=== PATIENT | male | born 1935 | race Caucasian/White ===

== ENCOUNTER → 2019-12-18 09:47 | Outpatient (BNVA) | payer SELFPAY | PROVIDERS: PCP Internal Medicine; Referring Provider Internal Medicine; Visit Provider Urology | DX: R39.15 Urgency of urination (principal); N40.1 Benign prostatic hyperplasia with lower urinary tract symptoms; N13.8 Other obstructive and reflux uropathy | CPT/HCPCS: 99214 ==

== ENCOUNTER → 2020-01-15 13:26 | Outpatient (BNVA) | payer SELFPAY | PROVIDERS: PCP Internal Medicine; Visit Provider Urology | DX: Z76.89 Persons encountering health services in other specified circumstances (principal) ==

== ENCOUNTER → 2020-02-04 09:26 | Outpatient (REF) | payer MEDICARE, SELFPAY ==
--- NOTE | 2020-02-04 09:30 | CA_ITS ---
Transthoracic Echocardiogram Patient (Last, First, Middle): Wayne Montilla E Gender: Male Date of : 1935 Age: 84 Procedure Date: 02/04/2020 Procedure Type: Transthoracic Echocardiogram Location: OP Height: 175.26 cm Weight: 79.38 kg BSA: 1.95 m2 Heart Rate: bpm BP: 130 / 78 mmHg Youth Specialist: JOCE Referring MD: Ivan Valente MD Symptoms: I25.10 ASHDW/0 ANGINA PECTORIS Study Quality: Fair ECG Rhythm: Sinus Conclusions: - The left ventricular systolic function is normal. The visually estimated ejection fraction is between 60-65%. - E/E prime ratio is >15, consistent with elevated filling pressures. - No obvious valvular pathology seen on this study. Findings Left Ventricle Normal left ventricular cavity size. There is normal left ventricular wall thickness. The left ventricular systolic function is normal. The visually estimated ejection fraction is between 60-65%. There is no evidence of regional wall motion abnormalities. E/E prime ratio is >15, consistent with elevated filling pressures. Evidence suggests grade I (mild) diastolic dysfunction. Right Ventricle Normal right ventricular cavity size and systolic function. Atria The left atrium is normal in size. The right atrium is normal in size. Aortic Valve There is a normal trileaflet aortic valve. There is mild calcification of the aortic valve. There is no aortic valve stenosis. There is no aortic valve regurgitation. Mitral Valve The mitral valve appears normal. There is trace mitral valve regurgitation. There is no mitral valve stenosis. Pulmonic Valve The pulmonic valve was not well visualized. Tricuspid Valve Normal tricuspid valve structure. There is trace tricuspid valve regurgitation. The pulmonary artery systolic pressure is normal. Great Vessels The aortic annulus, sinuses of valsalva, and asc aorta are normal in size. Venous The inferior vena cava is normal in size and collapses greater than 50% with inspiration. Pericardium/Pleural There is no evidence of pericardial effusion. Prior Study Comparison Changes noted compared to prior study dated: 10/11/2018. Filling pressures appear higher. Recommendations, Care & Conclusions No obvious valvular pathology seen on this study. Measurements 2D Linear Measurements IVSd: 0.85 0.6-0.9/0.6-1.0 cm LVIDd: 3.93 3.9-5.3/4.2-5.9 cm LVIDd Index: 2.02 2.4-3.2/2.2-3.1 cm/m2 LVIDs: 2.54 2.0-3.6 cm LVPWd: 0.86 0.7-1.1 cm Ao Root: 3.60 2.1-3.5 cm LA Diam: 2.80 2.7-3.8/3.0-4.0 cm LAIDs Index: 1.44 1.5-2.3 cm/m2 LV Mass: 123.95 67-162/88-224 g LV Mass Index: 63.57 43-95/49-115 g/m2 LVOT Diam: 2.10 3.0+(-)1.3 cm 2D Systolic Function EF 4C: 53.00 >55% EF 2C: 61.10 >55% EF BiP: 54.10 >55% Mitral Valve MV Pk E: 1.02 MV PK A: 0.89 MV Decel Time: 369.00 E/A: 1.10 E'Lateral: 5.51 E'Medial: 6.48 E/E' Med: 15.70 E/E' Lat: 18.50 PHT: 108.00 MVA PHT: 2.04 Decel [place]: 2.77 Aortic Valve AoV Pk Gregorio: 1.16 AoV Mn Gregorio: 0.72 AoV VTI: 0.27 AoV Pk Grad: 5.00 Aov Mn Grad: 2.00 NAOMI Cont.VTI: 3.54 LVOT LVOT Pk Gregorio: 1.11 LVOT Mn Gregorio: 0.71 LVOT VTI: 0.28 LVOT Pk Grad: 5.00 LVOT Mn Grad: 2.00 LVOT Diam: 2.10 LVOT Area: 3.46 Diastolic Function MV Pk E: 1.02 MV Pk A: 0.89 E/A: 1.10 E'Medial: 6.48 E/E' Med: 15.70 E' Laterial: 5.51 E/E' Lat: 18.50 Tricuspid Valve TR Pk Gregorio: 2.58 TR Pk Grad: 27.00 RA Press: 3.00 RVSP: 30.00 Great Vessels Aorta Ao Root-2D: 3.60 2.0-3.7 cm Ao Asc: 3.50 2.1-3.4 cm Ao Arch: 2.70 Updated in Other Vendor System with Status of Final Jermaine Pacheco MD electronically signed on 02/05/2020 8:31:12 AM with status of Final
== END ==
LOC: HO.CARD 09:26
PROVIDERS: PCP Internal Medicine; Visit Provider Internal Medicine Cardiovascular Disease
DX: I25.10 Atherosclerotic heart disease of native coronary artery without angina pectoris (principal)
CPT/HCPCS: 93306

== ENCOUNTER → 2020-02-07 08:59 | Outpatient (BNVA) | payer MEDICARE, SELFPAY | PROVIDERS: PCP Internal Medicine; Visit Provider Internal Medicine Cardiovascular Disease | DX: I25.10 Atherosclerotic heart disease of native coronary artery without angina pectoris (principal); R07.9 Chest pain, unspecified; R06.02 Shortness of breath; R00.1 Bradycardia, unspecified | CPT/HCPCS: 93005; 99212 ==

== ENCOUNTER → 2020-02-12 11:38 | Outpatient (BNVA) | payer MEDICARE, SELFPAY | PROVIDERS: PCP Internal Medicine; Visit Provider Urology | DX: N40.1 Benign prostatic hyperplasia with lower urinary tract symptoms (principal); N13.8 Other obstructive and reflux uropathy; R39.15 Urgency of urination | CPT/HCPCS: Q3014 ==

== ENCOUNTER → 2020-03-11 09:45 | Outpatient (BNVA) | payer MEDICARE, SELFPAY | PROVIDERS: PCP Internal Medicine; Visit Provider Internal Medicine Cardiovascular Disease | DX: I25.10 Atherosclerotic heart disease of native coronary artery without angina pectoris (principal); R06.02 Shortness of breath | CPT/HCPCS: Q3014 ==

== ENCOUNTER → 2020-09-01 12:51 | Outpatient (BNVA) | payer MEDICARE, SELFPAY | PROVIDERS: PCP Internal Medicine; Referring Provider Internal Medicine; Visit Provider Internal Medicine Cardiovascular Disease | DX: I25.10 Atherosclerotic heart disease of native coronary artery without angina pectoris (principal) | CPT/HCPCS: 93005; 99212 ==

== ENCOUNTER 2021-01-28 09:33 | Outpatient (REF) | payer MEDICARE, SELFPAY ==
[2021-01-28 17:13] LABS: Urine Cytology See Pathology rpt
== END 2021-01-28 09:34 | disposition home or self-care (01) ==
LOC: HO.LAB 09:33
PROVIDERS: PCP Internal Medicine; Visit Provider Urology
DX: R31.29 Other microscopic hematuria (principal); R82.81 Pyuria; N40.1 Benign prostatic hyperplasia with lower urinary tract symptoms; N13.8 Other obstructive and reflux uropathy
CPT/HCPCS: 52000; 88112; 99212

== ENCOUNTER → 2021-09-10 08:52 | Outpatient (BNVA) | payer MEDICARE, SELFPAY | PROVIDERS: PCP Internal Medicine; Referring Provider Internal Medicine; Visit Provider Internal Medicine Cardiovascular Disease | DX: R00.1 Bradycardia, unspecified (principal); I25.10 Atherosclerotic heart disease of native coronary artery without angina pectoris | CPT/HCPCS: 93005; 99212 ==

== ENCOUNTER → 2021-09-17 09:11 | Outpatient (REF) | payer MEDICARE, SELFPAY ==
--- NOTE | 2021-09-17 09:16 | CA_ITS ---
Acquisition Time: 2021-09-17 09:29:52 Total Exercise Time: 00:06:00 Test Indications: Fatigue Medications: METOPROLOL Protocol: LOGAN Max HR: 120 BPM 88% of Pred: 136 BPM Max BP: 172/072 mmHG Max Work Load: 7.0 METS Exercise stress test with exercise 6 min of Logan protocol, achieving 88% MPHR, without anginal symptoms, with isolated PAC, with normotensive and normal chronotropic response to exercise, without EKG changes meeting criteria for ischemia with exercise, in recovery there is downsloping ST segements inferior and lateral leads with gradual improvement back to baseline. Test reviewed with Dr Pacheco. Referred By: Ivan Valente Overread By: KRIS SARGENT
== END ==
LOC: HO.CARD 09:11
PROVIDERS: PCP Internal Medicine; Visit Provider Internal Medicine Cardiovascular Disease
DX: R00.1 Bradycardia, unspecified (principal)
CPT/HCPCS: 93017

== ENCOUNTER 2022-01-28 10:07 | Outpatient (REF) | payer MEDICARE, SELFPAY ==
--- NOTE | ~2022-01-28 | XR_ITS ---
EXAMINATION: XR SHOULDER, LEFT XR SHOULDER, RIGHT CLINICAL INFORMATION: Shoulder pain and stiffness COMPARISON: 08/14/2017 TECHNIQUE: 3 views of each shoulder FINDINGS: Left shoulder: No fracture or dislocation. The glenohumeral joint is well aligned. Subchondral sclerosis along the joint. Mild hypertrophic degenerative change of the acromioclavicular joint. The visualized lung is clear. The visualized ribs are intact. Right shoulder: No fracture or dislocation. The glenohumeral joint is well aligned. Mild sclerosis along the joint with small osteophytes. Mild hypertrophic degenerative change of the acromioclavicular joint. Subacromial spurring noted. The visualized lung is clear. The visualized ribs are intact. XR/XR shoulder LT min 2V IMPRESSION: Mild degenerative changes of both shoulders. Subacromial spurring on the right.
--- NOTE | ~2022-01-28 | XR_ITS ---
EXAMINATION: XR KNEE AP STANDING CLINICAL INFORMATION: Bilateral knee pain and stiffness COMPARISON: None TECHNIQUE: AP bilateral standing view of the knees was obtained. Lateral view of both knees weightbearing. FINDINGS: Right knee: No fracture or subluxation. Mild medial and patellofemoral compartmental joint space narrowing. Small marginal osteophytes at the patellofemoral compartment. Prominent patellar enthesophytes. No joint effusion. The soft tissues appear unremarkable. Left knee: No fracture or subluxation. Mild narrowing of the medial compartment. Small marginal osteophytes of the patellofemoral compartment. Prominent patellar enthesophytes. Small joint effusion. XR/XR knee standing BI IMPRESSION: Mild degenerative changes of both knees. Small left knee joint effusion.
--- NOTE | ~2022-01-28 | XR_ITS ---
EXAMINATION: XR SHOULDER, LEFT XR SHOULDER, RIGHT CLINICAL INFORMATION: Shoulder pain and stiffness COMPARISON: 08/14/2017 TECHNIQUE: 3 views of each shoulder FINDINGS: Left shoulder: No fracture or dislocation. The glenohumeral joint is well aligned. Subchondral sclerosis along the joint. Mild hypertrophic degenerative change of the acromioclavicular joint. The visualized lung is clear. The visualized ribs are intact. Right shoulder: No fracture or dislocation. The glenohumeral joint is well aligned. Mild sclerosis along the joint with small osteophytes. Mild hypertrophic degenerative change of the acromioclavicular joint. Subacromial spurring noted. The visualized lung is clear. The visualized ribs are intact. XR/XR shoulder RT min 2V IMPRESSION: Mild degenerative changes of both shoulders. Subacromial spurring on the right.
== END 2022-01-28 10:08 | disposition home or self-care (01) ==
LOC: HO.HMGCX 10:07
PROVIDERS: PCP Internal Medicine; Visit Provider Internal Medicine
DX: M25.551 Pain in right hip (principal); M25.552 Pain in left hip; M25.561 Pain in right knee; M25.562 Pain in left knee
CPT/HCPCS: 73030; 73565

== ENCOUNTER 2022-02-03 14:15 | Outpatient (REF) | payer MEDICARE, SELFPAY ==
--- NOTE | ~2022-02-03 | XR_ITS ---
EXAMINATION: XR CHEST CLINICAL INFORMATION: Cough. COMPARISON: None TECHNIQUE: 2 views of the chest were obtained. FINDINGS: The lungs are well-expanded and clear acute pneumonic process. The heart size and pulmonary vascularity is normal. There is moderate spondylosis throughout dorsal spine. No aggressive lytic or sclerotic process seen. XR/XR chest 2V IMPRESSION: Unremarkable chest exam
== END 2022-02-03 14:16 | disposition home or self-care (01) ==
LOC: HO.HMGCX 14:15
PROVIDERS: PCP Internal Medicine; Visit Provider Internal Medicine
DX: R05.9 Cough, unspecified (principal)
CPT/HCPCS: 71046

== ENCOUNTER 2022-09-23 14:47 | Outpatient (AMB) | payer MEDICARE, SELFPAY ==
[2022-09-23 14:49] VITALS: BP 130/80; PULSE 58; BMI 28.2
--- NOTE | 2022-09-23 14:49 | MHC.OFFVIS ---
Intake Vital Signs 09/23/22 14:49 Height 5 ft 8 in Weight 185 lb 3.013 oz BMI 28.2 BP 130/80 Blood Pressure Location Lt brachial Position Sitting Pulse 58 Intake Visit Reasons: 1 year follow up w/ EKG Intake Note: 1 year follow-up with ekg had some chest pain yesteday Regulatory Assistant Required: No Allergies No Known Allergies [No Known Allergies*] Allergy (Verified 01/28/21 09:39) Medication List - Last Reconciled 09/23/22 by Ivan Valente MD aspirin 81 mg PO DAILY atorvastatin 80 mg PO DAILY 90 days cholecalciferol (vitamin D3) 125 mcg PO DAILY ketoconazole 2% topical 3XW losartan 50 mg PO DAILY mecobalamin (vitamin B12) 1,000 mcg PO DAILY metoprolol succinate ER 25 mg PO DAILY mirabegron ER (Myrbetriq) 25 mg PO DAILY 30 days [id number]-bdxegk [id number] mcg (Men 50 Plus Multivitamin) 1 tab PO DAILY primidone 250 mg PO TID tamsulosin 0.4 mg PO BEDTIME terazosin 5 mg PO BEDTIME 90 days HPI HPI Comments History of Present Illness Details Wayne comes for follow-up after a long gap. He said yesterday under stressful situation precordial chest pressure similar to his anginal symptoms. He took extra half aspirin symptoms subsided. He has not had any significant exertional chest discomfort. Taking all his medications. Denies any heart failure symptoms. He said he has been undergoing a lot of stress recently given advance health issues for his significant other [facility] Medical History CAD (coronary artery disease) HTN (hypertension) Hyperlipidemia Surgical History History of prostate surgery Hx of cardiac cath (~09/2018) Hx of colonoscopy Hx of inguinal hernia surgery Family History Father Lung cancer Mother No problems noted. Review of Systems Const Denies chills, Denies fatigue, Denies fever(s), Denies frequent falls, Denies weakness, Denies weight gain and Denies weight loss ENT Denies dizziness Card Denies chest pain, Denies leg edema, Denies lightheadedness, Denies palpitations, Denies dyspnea, Denies dyspnea on exertion, Denies orthopnea and Denies other (loss of consciousness) Resp Denies cough, Denies dyspnea and Denies dyspnea on exertion GI Denies hematochezia and Denies change in stool character Musc Denies abnormal gait, Denies muscle weakness, Denies numbness, Denies radiating pain into limb and Denies tingling Neuro Denies abnormal gait, Denies dizziness, Denies frequent falls, Denies numbness, Denies tingling and Denies weakness Endo Denies fatigue and Denies palpitations Physical Exam Vital Signs: Last Vital Signs Pulse 58 09/23/22 14:49 BP 130/80 09/23/22 14:49 BMI result Body Mass Index 28.2 Const General: cooperative, comfortable, no acute distress, alert, awake and well groomed Nutritional Appearance: overweight Orientation/consciousness: patient oriented x3 Limitations: no limitations Neck Neck: Yes trachea midline, Yes supple and Yes no JVD Carotids: no bruits Resp Effort & Inspection: normal respiratory effort Auscultation: clear to auscultation bilaterally Cardio Jugular venous distension: no JVD Palpation: normal PMI Rate: regular rate Rhythm: regular rhythm Heart sounds: S1 normal heart sound present, S2 normal heart sound present, no click, no gallops, no murmurs and no rubs GI Auscultation: normal bowel sounds Skin General skin exam: no rashes or lesions noted Neuro General: patient oriented x3 and no focal motor deficits Extrem General: Yes no clubbing, cyanosis or edema Office Procedures EKG Details: EKG shows sinus bradycardia without any significant abnormality [id number], Complete Assessment & Plan Assessment & Plan (1) CAD (coronary artery disease): Code(s): I25.10 - Atherosclerotic heart disease of [place] coronary artery without angina pectoris Plan: Recurrent stress-induced anginal sounding chest discomfort recently in this elderly gentleman with prior OM intervention. Advised to undergo myocardial perfusion imaging to further assess for progressive CAD myocardial ischemia. Advised to seek emergency care for under relieving chest discomfort. He understands and agrees. Continue current medical therapy. Will see him in the clinic in the near future otherwise follow-up in 1 year's time. Importance of compliance with follow-up was discussed. His blood pressure is currently well optimized advised to continue current therapy. Continue high-intensity statin therapy. Target goal LDL less than 70 mg/dL. Continue low-dose aspirin therapy for life. Will follow up in the clinic 1 year's time, sooner p.r.n.. Thank you for allowing me to partake in his care Coding Level of Care Code Est Pt Level 4 (25229) Diagnoses CAD (coronary artery disease) I25.10 CPT Codes EKG - CPT: 58341-[id number], Complete ([id number])
== END 2022-09-23 15:29 | disposition home or self-care (01) ==
LOC: HO.HCS 14:47
PROVIDERS: PCP Internal Medicine; Referring Provider Internal Medicine; Visit Provider Internal Medicine Cardiovascular Disease
DX: I25.10 Atherosclerotic heart disease of native coronary artery without angina pectoris (principal)
CPT/HCPCS: 93010; 99214

== ENCOUNTER → 2022-09-23 14:47 | Outpatient (BNVA) | payer MEDICARE, SELFPAY | PROVIDERS: PCP Internal Medicine; Referring Provider Internal Medicine; Visit Provider Internal Medicine Cardiovascular Disease | DX: I25.10 Atherosclerotic heart disease of native coronary artery without angina pectoris (principal) | CPT/HCPCS: 93005; 99212 ==

== ENCOUNTER → 2022-11-19 08:56 | Outpatient (REF) | payer MEDICARE, SELFPAY ==
--- NOTE | ~2022-11-19 | NM_ITS ---
Myocardial perfusion study Indication: Chest pain to evaluate for myocardial ischemia Technique: The patient was brought in for a Lexiscan perfusion study on 11/19/2022. Patient performed low-level exercise and was injected 0.4 mg of Lexiscan intravenously. Within a minute of injection, 30 mCi of sestamibi was given intravenously. Images were obtained using the SPECT gamma camera interlaced with the gating device. Images were obtained in supine position. Resting perfusion study was performed on 11/22/2022. Patient was administered 30 mCi of sestamibi intravenously at rest. Images were then obtained in supine position. Images obtained with and without CT attenuation. Total DLP 135 mGy-cm. Images were processed with the software and compared side to side in short axis, horizontal long axis and vertical long axis views. Findings: The stress perfusion study showed non attenuated images show overall normal uptake of radiotracer in all segments of LV myocardium. Remainder of the LV myocardium is normally perfused. Attenuation corrected images show minimally reduced uptake in the apex of the LV myocardium. The gated study shows normal LV systolic function with calculated LVEF of 71%. LV cavity is normal in size. The gated study shows normal systolic wall thickening and contraction of segments. Resting study shows no change in perfusion pattern compared to stress perfusion study. Gating at rest reveals normal systolic wall motion with ejection fraction at 67%. The findings are consistent with normal myocardial perfusion. NM/NM ian perf SPECT rest & str Impression: 1. Myocardial perfusion imaging study shows normal myocardial perfusion 2. Gated LVEF is 71% 3. Transient ischemic dilatation not present EKG is nondiagnostic for ischemia
--- NOTE | 2022-11-19 08:59 | CA_ITS ---
Acquisition Time: 2022-11-19 09:28:40 Total Exercise Time: 00:02:00 Test Indications: CP Medications: ASA ATORVASTATIN LOSARTAN METOPROLOL MYRBETRIQ PRIMIDONE TAMSULOSIN Protocol: LEXISCAN Max HR: 087 BPM 64% of Pred: 135 BPM Max BP: 144/084 mmHG Max Work Load: 1.0 METS pharmacological stress test with Lexiscan injection while sitting and kicking his l;egs, without anginal symptoms, without arrhythmias, with normotensive response to exercise, with nondiagnoisitic EKGs. Nuclear images pending. Test reviewed with Dr. Valente. Referred By: Ivan Valente Overread By: Aleja Mack
== END ==
LOC: HO.CARD 08:56
PROVIDERS: PCP Internal Medicine; Visit Provider Internal Medicine Cardiovascular Disease
DX: R07.9 Chest pain, unspecified (principal)
CPT/HCPCS: 78452; 93017; A9500; J0280; J2785

== ENCOUNTER → 2022-11-19 08:59 | Outpatient (BNV) | payer MEDICARE, SELFPAY | PROVIDERS: PCP Internal Medicine; Visit Provider Nurse Practitioner | DX: R07.9 Chest pain, unspecified (principal) | CPT/HCPCS: 78452; 93016; 93018 ==

== ENCOUNTER 2023-03-26 10:09 | Outpatient (AMB) | payer MEDICARE, SELFPAY ==
[2023-03-26 10:51] VITALS: BP 106/70; PULSE 83; TEMP 37.7; O2SAT 97
--- NOTE | 2023-03-26 10:51 | AM.OFFWIN_ITS ---
Intake Vital Signs 03/26/23 10:51 Height 5 ft 8 in BMI Reason not done Patient refused/unable BP 106/70 Blood Pressure Location Lt brachial Position Sitting Pulse 83 Pulse Source Pulse Oximeter Temp 99.8 F Temp Source Oral Pulse Oximetry (%) 97 Oxygen Delivery Method Room Air Intake Visit Reasons: EP congestion cough choking fatigue Intake Note: pt is here for c.o congestion, cough, fatigue Patient Tobacco Use Status: Never used Tobacco Allergies No Known Allergies [No Known Allergies*] Allergy (Verified 03/26/23 10:52) Do you need a note to return to daycare/school/sports/work: No HPI HPI Comments History of Present Illness Details This is an 87-year-old male who presented to the walk-in clinic today complaining of worsening sinus/nasal congestion, rhinorrhea with green/yellow nasal drainage, productive cough with green/yellow sputum, and postnasal drip x1 week. Patient states he had similar symptoms in February of 2023 he tested positive for COVID-19. He states that his symptoms actually resolved; however, his symptoms returned approximately 1 week ago and they have been worsening ever since. He denies any fevers or chills. He denies any chest pain or shortness of breath. Denies any abdominal pain or nausea/vomiting/diarrhea. [facility] Medical History CAD (coronary artery disease) HTN (hypertension) Hyperlipidemia Surgical History History of prostate surgery Hx of cardiac cath (~09/2018) Hx of colonoscopy Hx of inguinal hernia surgery Family History Father Lung cancer Mother No problems noted. Social History Patient Tobacco Use Status: Never used Tobacco Review of Systems Const All systems reviewed & are unremarkable except as noted in HPI and below Reports no additional complaints Eyes Reports no additional complaints ENT Reports no additional complaints Card Reports no additional complaints Resp Reports no additional complaints GI Reports no additional complaints Reports no additional complaints Musc Reports no additional complaints Skin/Breast Reports system reviewed and no additional complaints, except as documented Neuro Reports no additional complaints Psych Reports no additional complaints Endo Reports no additional complaints Ritchie/Lymph Reports no additional complaints Aller/Immun Reports no additional complaints Physical Exam Vital Signs: Last Vital Signs Temp 99.8 F 03/26/23 10:51 Pulse 83 03/26/23 10:51 BP 106/70 03/26/23 10:51 Pulse Ox 97 03/26/23 10:51 Oxygen Delivery Method Room Air 03/26/23 10:51 Const Other: Vital signs reviewed. Constitutional: Non-toxic appearing. No acute distress. Well-developed and well-nourished. HEENT: Normocephalic and atraumatic. Tympanic membranes without erythema, edema, or bulging bilaterally. External auditory canals without erythema or edema bilaterally. Moist mucous membranes. No pharyngeal erythema or exudates. + Post-nasal drip. Skin: Warm and dry. No rashes or lesions noted. Neck: Full and painless range of motion. No cervical lymphadenopathy. Cardio: Regular rate and rhythm. No murmurs, gallops, or rubs. No lower extremity edema. No JVD. Pulmonary: No respiratory distress. No accessory muscle usage. Clear to auscultation bilaterally without wheezing, crackles, or rhonchi. Gastrointestinal: Soft, nontender, and nondistended in all 4 quadrants. Musculoskeletal: Normal range of motion in joints throughout the body. No deformity or other signs of injury. Neuro: Alert and oriented x4. Cranial nerves 2-12 grossly intact. No focal deficits appreciated. Psych: Normal mood and affect. Assessment & Plan Assessment & Plan (1) Acute bacterial rhinosinusitis: Code(s): J01.90 - Acute sinusitis, unspecified; B96.89 - Other specified bacterial agents as the cause of diseases classified elsewhere Plan: This is an 87-year-old male who presented to the walk-in clinic complaining of recurrent/worsening sinus/nasal congestion, rhinorrhea with green/yellow nasal drainage, productive cough with green/yellow sputum, and postnasal drip x1 week a diagnosis of COVID-19 in February 2023. Patient's physical exam is benign with normal lung sounds bilaterally and his vital signs are stable with the exception of a low-grade temperature at 99.8? F. given recurrent and worsening symptoms in the setting of a recent viral infection, I am concerned for possible acute bacterial rhinosinusitis versus acute bacterial bronchitis given productive cough with sputum production. Patient was sent home on p.o. amoxicillin/clavulanate 875/125 mg twice daily x7 days. Recommended symptomatic management including rest, increased fluids, advil/tylenol for pain/fever, and over the counter throat lozenges/decongestants. Patient advised to follow up here or go to the emergency room for worsening/persistent symptoms. Patient verbalized understanding and is agreeable with the plan. Orders: Orders SARS-CoV2/FLU/RSV Today R09.89 - Other specified symptoms and signs involving the circulatory and respiratory systems Medications: New amoxicillin-pot clavulanate 875-125 mg 1 tab PO BID 14 tabs 0RF Coding Level of Care Code Est Pt Level 3 (91781) Diagnoses Acute bacterial rhinosinusitis J01.90; B96.89
== END 2023-03-26 11:34 | disposition home or self-care (01) ==
PROVIDERS: PCP Internal Medicine; Visit Provider Physician Assistant Medical
DX: J01.90 Acute sinusitis, unspecified (principal); B96.89 Other specified bacterial agents as the cause of diseases classified elsewhere
CPT/HCPCS: 99213

== ENCOUNTER 2023-03-26 13:46 | Outpatient (REF) | payer MEDICARE, SELFPAY ==
[2023-03-26 14:44] LABS: Influenza A PCR NEGATIVE (Negative); Influenza B PCR NEGATIVE (Negative); Resp Syncy Virus RNA Qual PCR NEGATIVE (Negative); SARS COV2 PCR INHOUSE POSITIVE (Negative)
== END 2023-03-26 13:47 | disposition home or self-care (01) ==
LOC: HO.LNP 13:46
PROVIDERS: Visit Provider Physician Assistant Medical
DX: R09.89 Other specified symptoms and signs involving the circulatory and respiratory systems (principal); Z11.52 Encounter for screening for COVID-19; Z20.828 Contact with and (suspected) exposure to other viral communicable diseases
CPT/HCPCS: 0241U

== ENCOUNTER 2023-10-14 10:22 | Outpatient (AMB) | payer MEDICARE, SELFPAY ==
[2023-10-14 10:45] VITALS: BP 110/62; PULSE 55; BMI 26.0
--- NOTE | 2023-10-14 10:45 | MHC.OFFVIS ---
Vital Signs 10/14/23 10:45 Height 5 ft 8 in Weight 171 lb 1.259 oz BMI 26.0 BP 110/62 Blood Pressure Location Lt brachial Position Sitting Pulse 55 Pulse Source Monitor Intake Visit Reasons: 1 year fu w/ ekg Intake Note: 1 yr f/up w/ekg- pt state that he is doing fine Curtain Framer Required: No Accompanied by: Self / Same As Patient Allergies No Known Allergies [No Known Allergies*] Allergy (Verified 03/26/23 10:52) Medication List - Last Reconciled 10/14/23 by Ivan Valente MD aspirin 81 mg PO DAILY atorvastatin 80 mg PO DAILY 90 days cholecalciferol (vitamin D3) 125 mcg PO DAILY ketoconazole 2% topical 3XW mecobalamin (vitamin B12) 1,000 mcg PO DAILY dv-ccb-poadc-H7-fqccqaf-clxxlx 718-03-980-300 mcg (Men 50 Plus Multivitamin) 1 tab PO DAILY primidone 250 mg PO TID tamsulosin 0.4 mg PO BEDTIME terazosin 5 mg PO BEDTIME 90 days HPI Comments Details: Wayne comes for follow-up. He has not had any significant symptoms angina. Comes for follow-up of his CAD. He said he maintains activity level without any symptoms of chest pain with exertion. No shortness of breath. He said he took himself off metoprolol and multiple other medication because he was having a brain fog. He said his symptoms brain fog improved. He currently is limited because of left-sided lumbar back pain. Takes all his medication but takes aspirin every other day or so. [facility] Medical History CAD (coronary artery disease) Hyperlipidemia HTN (hypertension) Surgical History Hx of cardiac cath (~09/2018) Hx of colonoscopy Hx of inguinal hernia surgery History of prostate surgery Family History Father Lung cancer Mother No problems noted. Social History Patient Tobacco Use Status: Never used Tobacco Review of Systems Const Denies chills, Denies fatigue, Denies fever(s), Denies frequent falls, Denies weakness, Denies weight gain and Denies weight loss ENT Denies dizziness Card Denies chest pain, Denies leg edema, Denies lightheadedness, Denies palpitations, Denies dyspnea and Denies dyspnea on exertion Resp Denies cough, Denies dyspnea and Denies dyspnea on exertion GI Denies hematochezia Musc Denies abnormal gait, Denies muscle weakness, Denies numbness, Denies radiating pain into limb and Denies tingling Neuro Denies abnormal gait, Denies dizziness, Denies frequent falls, Denies numbness, Denies tingling and Denies weakness Endo Denies fatigue and Denies palpitations Physical Exam Vital Signs: Last Vital Signs Pulse 55 10/14/23 10:45 BP 110/62 10/14/23 10:45 BMI result Body Mass Index 26.0 Const General: cooperative, comfortable, no acute distress, alert, awake and well groomed Nutritional Appearance: overweight Orientation/consciousness: patient oriented x3 Limitations: no limitations Neck Neck: Yes trachea midline, Yes supple and Yes no JVD Carotids: no bruits Resp Effort & Inspection: normal respiratory effort Auscultation: clear to auscultation bilaterally Cardio Jugular venous distension: no JVD Palpation: normal PMI Rate: regular rate Rhythm: regular rhythm Heart sounds: S1 normal heart sound present, S2 normal heart sound present, no click, no gallops, no murmurs and no rubs GI Auscultation: normal bowel sounds Skin General skin exam: no rashes or lesions noted Neuro General: patient oriented x3 and no focal motor deficits Extrem General: Yes no clubbing, cyanosis or edema Office Procedures EKG Details: EKG shows sinus bradycardia with first-degree AV block with sinus arrhythmia 92083-Rydymylvjcrejqlod, Complete Assessment & Plan Assessment & Plan (1) CAD (coronary artery disease): Code(s): I25.10 - Atherosclerotic heart disease of [place] coronary artery without angina pectoris Category: Medical Plan: CAD with remote stenting of circumflex artery without any recurrent symptoms suggestive of angina. Myocardial perfusion imaging last fall was within normal limits. No further workup is indicated. Importance of daily aspirin use was discussed with him as secondary prevention technique. He said he will think about it. Also continue high-intensity statin therapy with target goal LDL closer to 60 mg/dL. Blood pressure seems to be currently well optimized and would avoid using any antihypertensives at this point in time. Encouraged to maintain activity level as tolerated. (2) Sinus bradycardia: Code(s): R00.1 - Bradycardia, unspecified Category: Medical Plan: Sinus bradycardia in this elderly gentleman without any rate lowering medication. Would avoid rate lowering medications suggest metoprolol in future. No indication for pacing therapy as he is currently not having any symptoms. Most suggestive of sinoatrial swathi dysfunction. Will follow up in the clinic in 1 year's time, sooner p.r.n.. Thank you for allowing me to partake in his care Coding Level of Care Code Est Pt Level 4 (58030) Diagnoses CAD (coronary artery disease) I25.10 Sinus bradycardia R00.1 CPT Codes EKG - CPT: 90645-Tyeaofqkigsrrfqbt, Complete ([id number])
== END 2023-10-14 11:08 | disposition home or self-care (01) ==
PROVIDERS: PCP Internal Medicine; Visit Provider Internal Medicine Cardiovascular Disease
DX: I25.10 Atherosclerotic heart disease of native coronary artery without angina pectoris (principal); R00.1 Bradycardia, unspecified
CPT/HCPCS: 93010; 99214

== ENCOUNTER → 2023-10-14 10:22 | Outpatient (BNVA) | payer MEDICARE, SELFPAY | PROVIDERS: PCP Internal Medicine; Visit Provider Internal Medicine Cardiovascular Disease | DX: I25.10 Atherosclerotic heart disease of native coronary artery without angina pectoris (principal); R00.1 Bradycardia, unspecified | CPT/HCPCS: 93005; 99212 ==

== ENCOUNTER 2024-10-15 11:32 | Outpatient (AMB) | payer MEDICARE, SELFPAY ==
--- NOTE | 2024-10-15 11:51 | A.OFFVIS_ITS ---
Vital Signs 10/15/24 11:52 Height 5 ft 8 in Weight 154 lb 5.177 oz BMI 23.5 BP 132/82 Blood Pressure Location Lt brachial Position Sitting Pulse 59 Intake Visit Reasons: 1 yr followup w/ekg dx: cad Intake Note: 1 year follow-up with ekg feeling great Senior Director Insight Required: No Allergies No Known Allergies (No Known Allergies*) Allergy (Verified 03/26/23 10:52) Medication List - Last Reconciled 10/15/24 by Ivan Valente MD aspirin 81 mg PO DAILY atorvastatin 80 mg PO DAILY 90 days cholecalciferol (vitamin D3) 125 mcg PO DAILY ketoconazole 2% topical 3XW mecobalamin (vitamin B12) 1,000 mcg PO DAILY oy-yuz-biwam-D2-evijzbv-dobvjs 572-27-689-300 mcg (Men 50 Plus Multivitamin) 1 tab PO DAILY primidone 250 mg PO TID terazosin 5 mg PO BEDTIME 90 days HPI Comments Details: Wayne comes for follow-up he has been doing extremely well from cardiac perspective. He has been dancing and regularly participate in regular physical activity without any exertional chest pain. He feels well. Denies any lightheadedness, syncope. No heart failure symptoms. [facility] Medical History CAD (coronary artery disease) Hyperlipidemia HTN (hypertension) Surgical History Hx of cardiac cath (~09/2018) Hx of colonoscopy Hx of inguinal hernia surgery History of prostate surgery Family History Father Lung cancer Mother No problems noted. Social History Patient Tobacco Use Status: Never used Tobacco Review of Systems Const Denies chills, Denies fatigue, Denies fever(s), Denies frequent falls, Denies weakness, Denies weight gain and Denies weight loss ENT Denies dizziness Card Denies chest pain, Denies leg edema, Denies lightheadedness, Denies palpitations, Denies dyspnea, Denies dyspnea on exertion, Denies orthopnea and Denies other (loss of consciousness) Resp Denies cough, Denies dyspnea and Denies dyspnea on exertion GI Denies hematochezia and Denies change in stool character Musc Denies abnormal gait, Denies muscle weakness, Denies numbness, Denies radiating pain into limb and Denies tingling Neuro Denies abnormal gait, Denies dizziness, Denies frequent falls, Denies numbness, Denies tingling and Denies weakness Endo Denies fatigue and Denies palpitations Physical Exam Vital Signs: Last Vital Signs Pulse 59 10/15/24 11:52 BP 132/82 10/15/24 11:52 BMI result Body Mass Index 23.5 Const General: cooperative, comfortable, no acute distress, alert, awake and well groomed Nutritional Appearance: overweight Orientation/consciousness: patient oriented x3 Limitations: no limitations Neck Neck: Yes trachea midline, Yes supple and Yes no JVD Carotids: no bruits Resp Effort & Inspection: normal respiratory effort Auscultation: clear to auscultation bilaterally Cardio Jugular venous distension: no JVD Palpation: normal PMI Rate: regular rate Rhythm: regular rhythm Heart sounds: S1 normal heart sound present, S2 normal heart sound present, no click, no gallops, no murmurs and no rubs GI Auscultation: normal bowel sounds Skin General skin exam: no rashes or lesions noted Neuro General: patient oriented x3 and no focal motor deficits Extrem General: Yes no clubbing, cyanosis or edema Office Procedures EKG Details: EKG shows sinus bradycardia with normal EKG 64293-Ozhfonkrlzapxpryp, Complete Assessment & Plan Assessment & Plan (1) CAD (coronary artery disease): Code(s): I25.10 - Atherosclerotic heart disease of [place] coronary artery without angina pectoris Category: Medical Plan: Remote CAD with PCI to the circumflex artery without any significant symptoms of angina at current workload and good functional status. Continue aggressive medical therapy. Low-dose aspirin therapy is advised continue high-intensity statin therapy. Advised lipid panel in near future. Continue aggressive blood pressure control which is currently well optimized. Encouraged to maintain activity level and report any new symptoms. (2) HTN (hypertension): Code(s): I10 - Essential (primary) hypertension Category: Medical Plan: Hypertension which is currently well optimized. He is currently on only terazosin which is managing his blood pressure. Continue the same. Advised to monitor blood pressure at home maintain a log. Goal blood pressure less than 130/84. Low-salt diet was advised. (3) Sinus bradycardia: Code(s): R00.1 - Bradycardia, unspecified Category: Medical Plan: Prior sinus bradycardia but currently not on any rate lowering medication with acceptable heart rate. He has no symptoms related to it. Does not require any interventions. Avoid rate lowering medications in the future. Will follow up in the clinic in 1 year's time, sooner p.r.n.. Thank you for allowing me to partake in his care Coding Level of Care Code Est Pt Level 4 (70681) Complex EM visit Add On G2211 Diagnoses CAD (coronary artery disease) I25.10 HTN (hypertension) I10 Sinus bradycardia R00.1 CPT Codes EKG - CPT: 77463-Aazlzjugqfcgioknw, Complete ([id number])
[2024-10-15 11:52] VITALS: BP 132/82; PULSE 59; BMI 23.5
--- OUTSIDE RECORDS SUMMARY | 2024-10-15 13:04 | XMS_ITS | Patient Health Record ---
Author Organization [facility] [place] Address [address] [place] [address] Care Team Providers Care Kicking Machine Operator Name Role Phone Bonilla Cruz MD Primary Care Provider UnavailEros Landis Unavailable [phone] Allergies Allergen (clinical drug ingredient) Drug/Non Drug Allergy documented on EMR Reaction Allergy Type Onset Date Status Sinus Unknown Drug Allergy Active Reason For Referral No Information Medications Medication SIG (Take, Route, Frequency, Duration) Notes Start Date End Date Status Terazosin HCl 5 MG 1 capsule at bedtime Orally Once a day; Duration: 30 day(s) Active Ciclopirox Olamine 0.77 % 1 application Externally Twice a day; Duration: 30 days Not-Takin g Isosorbide Dinitrate 60 mg Not-Taking Marijuana medical Not-Taking Allergy Relief 10 MG 1 tablet Orally [...] Once a day; Duration: 30 day(s) Active Primidone 50 MG 1 tablet Orally Once a day; Duration: 30 day(s) Active Immunizations Vaccine Route Administration Date Status Comme nts COVID-19 Moderna Vaccine Unknown 11/18/2020 Administere d 1st 10/03/2020 Influenza Unknown 12/26/2020 Refused Social History Tobacco Use: Social History Observation [...] ast year? No Points 0 Interpretation Negative Problems Problem Type SNOMED Code ICD Code Onset Dates Problem Status W/U Status Risk Notes Problem Bilateral atherosclerosis of arteries of lower limbs (disorder) ([id number] ) Atherosclerosis of [place] artery of both lower extremities, with unspecified presence of clinical manifestation (I70.203) Active confirmed Vital Signs Blood pressure diastolic 63 mm Hg 11/25/2023 Height 5 ft 9 in in 11/25/2023 Blood pressure systolic 122 mm Hg 11/25/2023 Weight 170 lbs 11/25/2023 BMI 25.1 kg/m2 11/25/2023 Procedures Procedure Date Ordered Date Performed Result Body Sit e 76903-GQXKULF NAIL, 6 OR MORE 11/25/2023 N/A 66190-CMBQ SKIN LESIONS, OVER 4 11/25/2023 N/A Encounters Encounter Location Date Provider Diagnosis [facility] [address] [address] 11/25/2023 Eros Pederson Atherosclerosis of [place] artery of both lower extremities, with unspecified presence of clinical manifestation I70.203 ; Tinea unguium B35.1 ; Pain in right toe(s) M79.674 and Pain in left toe(s) M79.675 [facility] [address] [address] 03/02/2024 Erso Pederson Assessments Encounter Date Diagnosis (ICD Code) Assessment Notes Treatment Notes Treatment Clinical Notes Section Notes 11/25/2023 Tinea unguium (ICD-10 - B35.1) 11/25/2023 Atherosclerosis of [place] artery of both lower extremities, with unspecified presence of clinical manifestation (ICD-10 - I70.203) 11/25/2023 Pain in right toe(s) (ICD-10 - M79.674) 11/25/2023 Pain in left toe(s) (ICD-10 - M79.675) Plan Of Treatment Pending Test Test Name Order Date 60780-DGJSMCC NAIL, 6 OR MORE 10/10/2020 53462-VPJAIRN NAIL, 6 OR MORE 12/26/2020 09110-UTYIFZY NAIL, 6 OR MORE 05/15/2021 93859-KRJMYWH NAIL, 6 OR MORE 12/25/2021 12592-PVDXNRB NAIL, 6 OR MORE 03/12/2022 37422-OQVHIDE NAIL, 6 OR MORE 07/30/2022 91227-SFRVKHB NAIL, 6 OR MORE 10/08/2022 20871-UHWCAKW NAIL, 6 OR MORE 05/24/2023 53479-PLEBVTW NAIL, 6 OR MORE 09/13/2023 91280-VUPCLOB NAIL, 6 OR MORE 11/25/2023 61805-VVLSDPZ NAIL, 6 OR MORE 03/18/2023 88457-LKRGNWO NAIL, 6 OR MORE 12/21/2022 76976-XYORBIC NAIL, 6 OR MORE 05/21/2022 35360-OUZXQYF NAIL, 6 OR MORE 08/14/2021 32733-LTNE SKIN LESIONS, OVER 4 05/22/19 23 56886-DGHI SKIN LESIONS, OVER 4 12/22/19 23 40042-GIMT SKIN LESIONS, OVER 4 03/18/19 24 16393-XNBG SKIN LESIONS, OVER 4 11/25/19 24 24387-WOOT SKIN LESIONS, OVER 4 09/13/19 24 10323-UNVR SKIN LESIONS, OVER 4 05/24/19 24 02943-WXXO SKIN LESIONS, OVER 4 10/09/19 23 51412-ONPP SKIN LESIONS, OVER 4 07/31/19 23 91306-WELJ SKIN LESIONS, OVER 4 03/12/19 23 49777-EHOV SKIN LESIONS, 2 TO 4 12/26/19 22 Insurance Providers Payer Name Payer Address Payer Phone Subscriber Number Group Number Insured Name Patient Relationship to Insured Coverage Start Date Coverage End Date [facility] 67 Medicare Preferred [address] [place] [address] [id number] Wayne Montilla Self - patient is the insured Medical (General) History Medical History History ICD Code Angina Cataracts Gall bladder problems High blood pressure Warts Measles Chicken pox covid-19 dry eyes Surgical History 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
== END 2024-10-15 12:16 | disposition home or self-care (01) ==
LOC: HO.HCS 11:32
PROVIDERS: PCP Internal Medicine; Visit Provider Internal Medicine Cardiovascular Disease
DX: I25.10 Atherosclerotic heart disease of native coronary artery without angina pectoris (principal); I10 Essential (primary) hypertension; R00.1 Bradycardia, unspecified
CPT/HCPCS: 93010; 99214; G2211

== ENCOUNTER → 2024-10-15 11:32 | Outpatient (BNVA) | payer MEDICARE, SELFPAY | PROVIDERS: PCP Internal Medicine; Visit Provider Internal Medicine Cardiovascular Disease | DX: I25.10 Atherosclerotic heart disease of native coronary artery without angina pectoris (principal); I10 Essential (primary) hypertension; R00.1 Bradycardia, unspecified | CPT/HCPCS: 93005; 99212 ==

== ENCOUNTER 2024-10-19 14:24 | Outpatient (AMB) | payer MEDICARE, SELFPAY ==
--- OUTSIDE RECORDS SUMMARY | 2023-08-05 06:00 | XMS_ITS ---
Author Organization [facility] Address [address] [place] [address] Care Team Providers Care Permit Coordinator Name Role Phone Nancy GRANDA, Bonilla Primary Care Provider Unavailab Eros Barnhart Unavailable [phone] Encounters Encounter Location Date Provider Diagnosis [address] [address] 08/05/2023 rEos Pederson Plan Of Treatment No Information Progress Notes * Wayne LAM EDOB:1935 (89 yo M)Acc No.[id number]:08/05/2023 Progress Note Patient: Wayne BARON Provider: Judy Pederson DPM :1935 A ge:88 Y S ex:Male Date:08/05/2023 Address:[address] [place], [place] [id number] Pcp:Bonilla Cruz MD Subjective: * Chief Complaints: [...] Date: 08/05/2023 Generated for Printi ng/Faxing/eTransmitting on: 10/19/2024 02:27 PM EDT
--- OUTSIDE RECORDS SUMMARY | 2024-03-02 07:15 | XMS_ITS ---
Author Organization [facility] [place] Address [address] [place] [address] Care Team Providers Care Seed Yeast Operator Name Role Phone Bonilla Cruz MD Primary Care Provider Unavailab Eros Barnhart Unavailable [phone] Medications Medication SIG (Take, Route, Frequency, Duration) [...] Negative Encounters Encounter Location Date Provider Diagnosis [facility] [place] [address] [place] [address] 03/02/2024 Eros Pederson Plan Of Treatment No Information Progress Notes * Wayne LAM EDOB:1935 (89 yo M)Acc No.[id number]:03/02/2024 Progress Note Patient: Wayne BARON Provider: Judy Pederson DPM :1935 A ge:88 Y S ex:Male Date:03/02/2024 Address:[address] [place], [place] [id number] Pcp:Bonilla Cruz MD Subjective: * Chief Complaints: [...] 0 03/02/2024 Generated for Josi shell/Anay/Taty on: 0 10/19/2024 02:27 PM EDT
--- NOTE | 2024-10-19 14:26 | A.OFFPC_ITS ---
Vital Signs 10/19/24 14:43 Height 5 ft 6.54 in Weight 158 lb 8 oz BMI 25.2 BP 120/58 L Blood Pressure Location Rt femoral Position Sitting Respiration 16 Pulse 48 L Pulse Source Pulse Oximeter Temp 97.2 F Temp Source Temporal Artery Scan Pulse Oximetry (%) 99 Oxygen Delivery Method Room Air Intake [place] Re[place] [facility] [place]st Required: No Accompanied by: Self / Same As Patient Allergies No Known Allergies (No Known Allergies*) Allergy (Verified 10/19/24 16:10) Medication List - Last Reconciled 10/19/24 by Kimi Rudolph PA-C aspirin 81 mg PO DAILY atorvastatin 80 mg PO DAILY 90 days cholecalciferol (vitamin D3) 125 mcg PO DAILY mecobalamin (vitamin B12) 1,000 mcg PO DAILY [id number]-dfcmdx [phone] mcg (Men 50 Plus Multivitamin) 1 tab PO DAILY primidone 250 mg PO TID sildenafil (Viagra) 50 mg PO DAILY PRN terazosin 5 mg PO BEDTIME 90 days Tobacco use date assessed: 10/19/24 Fall risk assessment: 1 Fall in past year Last assessed Fall Risk: 10/19/24 Dental Screening Dental Screen Date: 10/19/24 Did you have a dental visit in the last 12 months?: Yes Did you have a dental problem in the last 6 months where you did not have access to dental care?: No Was dental information given to patient?: Patient has dentist [place] [facility] [place] Details The patient is an 89-year-old male presenting for the establishment of primary care and evaluation of gastrointestinal symptoms. The patient has a history of coronary artery disease, managed with aspirin and atorvastatin, and has undergone balloon angioplasty for a small coronary vessel. He reports alternating episodes of diarrhea and constipation, with recent use of enemas for relief. There is no history of black or bloody stools, but he has experienced unintentional weight loss, partially due to dietary changes. He has not had a colonoscopy in over a decade and reports right-sided abdominal discomfort. No recent imaging or comprehensive blood work has been performed this year. The patient reports erectile dysfunction and has been prescribed sildenafil, with plans to resume sexual activity. He experiences neuropathy likely due to chronic arthritis, which is managed with physical activity such as dancing. Dermatological concerns include irregular moles and scalp dermatitis, prompting a dermatology referral. Social History - Exercise: Engages in dancing and exerc ise classes, which have improved joint mobility and reduced arthritis symptoms. - Living situation: Lives independently without the need for assistance. - Nutrition: Follows a self-imposed diet , eating two meals a day, occasionally skipping dinner. [facility] Medical History (Updated 10/19/24 @ 16:16 by Kimi Rudolph PA-C) Neuropathy Diarrhea Constipation Multiple atypical skin moles Erectile dysfunction Right sided abdominal pain CAD (coronary artery disease) Hyperlipidemia HTN (hypertension) Surgical History Hx of cardiac cath (~09/2018) Hx of colonoscopy Hx of inguinal hernia surgery History of prostate surgery Family History Father Lung cancer Mother No problems noted. Social History Housing: Condominium Alcohol intake: current Alcohol intake frequency: holidays/special occasions only Patient Tobacco Use Status: Never used Tobacco service: No Current occupational status: retired Cognitive needs: No Hearing needs: No Vision needs: Yes (reading) Questionnaire PHQ-9 Over the last 2 weeks, how often have you been bothered by any of the following problems? 1. Little interest or pleasure in doing things: not at all 2. Feeling down, depressed, or hopeless: not at all 3. Trouble falling or staying asleep, or sleeping too much: not at all 4. Feeling tired or having little energy: not at all 5. Poor appetite or overeating: not at all 6. Feeling bad about yourself - or that you are a failure or have let yourself or your family down: not at all 7. Trouble concentrating on things, such as reading the newspaper or watching television: not at all 8. Moving or speaking so slowly that other people could have noticed. Or the opposite - being so fidgety or restless that you have been moving around a lot more than usual: not at all 9. Thoughts that you would be better off or of hurting yourself in some way: not at all Total score: 0 Depression Screening Interpretation: Negative Depression Screening Done: Yes 73739 - PHQ-9 Billing: Yes Source: Developed by Drs. Girish Mccarthy, Africa Restrepo, Dayne Gutierrez and colleagues, with an educational shen from [employer]. Thrive Questionnaire Date Thrive assessed: 10/19/24 I am a: Patient What is your living situation today?: I have a steady place to live Within the past 12 months, did the food you bought not last and you didn't have the money to get more?: Never true Within the past 12 months, did you worry whether your food would run out before you got money to buy more?: Never true Do you have trouble paying for medicines?: No Do you have trouble getting transportation to medical appointments?: No Do you have trouble paying your heating and electricity bill?: No Do you have trouble taking care of your child, family member or friend?: No Do you have trouble with day-to-day activities such as bathing, preparing meals, shopping, managing finances, etc.?: No Are you currently unemployed and looking for a job?: No Are you interested in more education?: No Please select the resources that you would like help with: None Currently or been in a relationship where the following occur: No concerns reported THRIVE Score: 0 AUDIT C Alcohol Use Questionnaire (AUDIT-C) 1. How often do you have a drink containing alcohol?: Monthly or less 2. How many drinks containing alcohol do you have on a typical day when you are drinking?: 1 or 2 3. How often do you have six or more drinks on one occasion?: Never Total Score: 1 Score Reviewed/Action Taken: No MANNY-7 AMB Questionnaire MANNY-7 Date MANNY - 7 assessed: 10/19/24 Feeling nervous, anxious, or on edge: 0 = Not at all Not being able to stop or control worryin = Not at all Worrying too much about different things: 0 = Not at all Trouble relaxin = Not at all Being so restless that it is hard to sit still: 0 = Not at all Becoming easily annoyed or irritable: 0 = Not at all Feeling afraid as if something awful might happen: 0 = Not at all Total MANNY-7 score (0-4 normal; 5-9 mild; 10-14 moderate; 15-21 severe): 0 Source: Developed by Drs. Girish Mccarthy, Africa Restrepo, Dayne Gutierrez and colleagues, with an educational shen from [employer]. MANNY-7 Assessment Billing MANNY-7 Assessment Tool: MANNY-7 Assessment 04446 Review of Systems Const Details: - Gastrointestinal: Reports alternating diarrhea and constipation, right-sided abdominal discomfort, denies black or bloody stools. - Cardiovascular: Denies chest pain or dyspnea. - Genitourinary: Reports erectile dysfunction, denies hematuria. - Neurological: Reports neuropathy, denies balance issues. All systems reviewed & are unremarkable except as noted in HPI and below Physical exam (Primary Care) Vital Signs: Last Vital Signs Temp 97.2 F 10/19/24 14:43 Pulse 48 L 10/19/24 14:43 Resp 16 10/19/24 14:43 BP 120/58 L 10/19/24 14:43 Pulse Ox 99 10/19/24 14:43 Oxygen Delivery Method Room Air 10/19/24 14:43 Care Plan Goal for BP management: <140/90 at Goal BMI result Body Mass Index 25.2 BMI Assessment/Plan discussion: High BMI High, discussed plan: lifestyle, weight reduction, dietary, physical activity, alcohol moderation and other Tobacco/Smoking Status: Tobacco use Status Tobacco use date assessed 10/19/24 10/19/24 14:31 Patient Tobacco Use Status Never used Tobacco 10/19/24 14:42 PHQ-9: PHQ-9 Score PHQ-9: Total score 0 10/19/24 15:26 Depression Screening Interpretation: Negative Thrive Assessment: Date of Thrive Assessment Date Thrive assessed 10/19/24 10/19/24 14:31 Currently or been in a relationship where the following occur: No concerns reported Const Other: Appearance: Alert. Oriented X3. No acute distress. Head: Normal external exam. Normocephalic. Atraumatic. Eyes: Pupils are equal, round, and reactive to light. Extraocular movements intact. Conjunctiva and sclera normal. Eyelids normal. Ears: External auditory canal normal. Tympanic membranes normal. A little bit of wax around the rim, but not blocking the tympanic membrane. Throat: Pharynx normal. Uvula midline. Moist mucous membranes. Neck: Normal inspection. Neck supple. Full range of motion. Cardiovascular: Normal heart rate and rhythm. Heart sound normal. A little murmur noted. Pulses normal throughout. Respiratory: No respiratory distress. Painless inspiration. Breath sounds normal. No wheezes/rales/rhonchi noted. No accessory muscle usage noted or decreased air movement noted. Abdomen: Soft and nontender. No distention noted. No organomegaly noted. Back: No costovertebral angle tenderness. Full range of motion noted. Skin: Skin warm and dry. Normal skin color. Normal skin turgor. No rashes/lesions/lacerations noted. Multiple moles on the back, none suspicious for cancer. Extremities: No lower extremity edema. Extremities exhibit normal range of motion. Extremities nontender. Neuro: Oriented X 3. No motor deficit. No sensory deficit. Reflexes normal. Coding Level of Care Code New Pt Level 4 (98817) Complex EM visit Add On G2211 Diagnoses CAD (coronary artery disease) I25.10 Constipation K59.00 Diarrhea R19.7 Erectile dysfunction N52.9 Neuropathy G62.9 Multiple atypical skin moles D22.9 Sinus bradycardia R00.1 Additional Codes PHQ-9 - 18593 - PHQ-9 Billing: Yes ([id number]) MANNY-7 Assessment Billing - MANNY-7 Assessment Tool: MANNY-7 Assessment 26304 ([id number]) Assessment & Plan Assessment & Plan (1) CAD (coronary artery disease): Code(s): I25.10 - Atherosclerotic heart disease of [place] coronary artery without angina pectoris Category: Medical Plan: The patient is on aspirin and atorvastatin for coronary artery disease, with a history of balloon angioplasty for a small coronary vessel. (2) Constipation: Code(s): K59.00 - Constipation, unspecified Category: Medical Plan: The patient reports constipation managed with enemas, and a colonoscopy is recommended due to the long interval since the last one. (3) Diarrhea: Code(s): R19.7 - Diarrhea, unspecified Category: Medical Plan: The patient experiences alternating diarrhea and constipation, with a plan for a colonoscopy and abdominal imaging to rule out any underlying issues. (4) Erectile dysfunction: Code(s): N52.9 - Male erectile dysfunction, unspecified Category: Medical Plan: Sildenafil was prescribed for erectile dysfunction, with instructions on dosage and use. (5) Neuropathy: Code(s): G62.9 - Polyneuropathy, unspecified Category: Medical Plan: Neuropathy is likely secondary to chronic arthritis, with physical activity recommended to improve symptoms. (6) Multiple atypical skin moles: Code(s): D22.9 - Melanocytic nevi, unspecified Category: Medical Plan: Referral to dermatology was made for irregular moles and scalp dermatitis, with no suspicious lesions noted for cancer. (7) Sinus bradycardia: Code(s): R00.1 - Bradycardia, unspecified Category: Medical Plan: A low heart rate with a murmur was noted, but no immediate cardiology referral was discussed. Plan Plan Patient was informed and verbally consented to the use of an ambient scribe for clinic note documentation during this visit. 1. Coronary Artery Disease The patient is on aspirin and atorvastatin for coronary artery disease, with a history of balloon angioplasty for a small coronary vessel. 2. Constipation The patient reports constipation managed with enemas, and a colonoscopy is recommended due to the long interval since the last one. 3. Diarrhea The patient experiences alternating diarrhea and constipation, with a plan for a colonoscopy and abdominal imaging to rule out any underlying issues. 4. Erectile Dysfunction Sildenafil was prescribed for erectile dysfunction, with instructions on dosage and use. 5. Neuropathy Neuropathy is likely secondary to chronic arthritis, with physical activity recommended to improve symptoms. 6. Low Heart Rate A low heart rate with a murmur was noted, but no immediate cardiology referral was discussed. 7. Dermatological Concerns Referral to dermatology was made for irregular moles and scalp dermatitis, with no suspicious lesions noted for cancer. I discussed with the patient the management of his coronary artery disease with aspirin and atorvastatin, and the need for a colonoscopy due to gastrointestinal symptoms and the long interval since his last screening. We also talked about the prescription of sildenafil for erectile dysfunction and the importance of physical activity for managing neuropathy and arthritis symptoms. A dermatology referral was made for skin concerns, and I explained the process for scheduling a colonoscopy and abdominal imaging. Orders: Orders Complete Blood Count Auto Diff Today Z00.00 - Encounter for general adult medical examination without abnormal findings Liver Panel Today Z00.00 - Encounter for general adult medical examination without abnormal findings Magnesium Today Z00.00 - Encounter for general adult medical examination without abnormal findings PSA,Total (Free>4and<10) Today Z00.00 - Encounter for general adult medical examination without abnormal findings TSH reflex Free T4 Today Z00.00 - Encounter for general adult medical examination without abnormal findings Comprehensive Met. Panel Today Z00.00 - Encounter for general adult medical examination without abnormal findings Hemoglobin A1c Today Z00.00 - Encounter for general adult medical examination without abnormal findings CT abdomen pelvis w IV con Today R10.9 - Unspecified abdominal pain Referrals Gastroenterology Referral Z12.11 - Encounter for screening for malignant neoplasm of colon Dermatology Referral D22.9 - Melanocytic nevi, unspecified Medications: New sildenafil (Viagra) administer 30 minutes to 4 hours before activity 50 mg PO DAILY PRN 20 tabs 3RF sexual activity N52.9 - Male erectile dysfunction, unspecified Refilled terazosin 5 mg PO BEDTIME 90 caps 3RF 90 days aspirin 81 mg PO DAILY 90 tabs 3RF Patient Instructions: - Continue taking aspirin and atorvastatin as prescribed. - Use sildenafil as directed for erectile dysfunction. - Engage in regular physical activity to help manage neuropathy and arthritis symptoms. - Schedule and attend a colonoscopy and abdominal imaging as advised. - Follow up with dermatology for skin evaluation. - Return for a follow-up appointment in six months or sooner if symptoms worsen.
--- OUTSIDE RECORDS SUMMARY | 2024-10-19 14:27 | XMS_ITS | Patient Health Record ---
[facility] Organization [facility] [place] Address [address] [place] [address] Care Team Providers Care Camera Operator Name Role Phone Bonilla Cruz MD Primary Care Provider UnavailEros Landis Unavailable [phone] Allergies Allergen (clinical drug ingredient) Drug/Non Drug [...] Vaccine Route Administration Date Status Comme nts Influenza Unknown 12/26/2020 Refused COVID-19 Moderna Vaccine Unknown 11/18/2020 Administere d 1st 10/03/2020 Social History Tobacco Use: Social History Observation [...] atherosclerosis of arteries of lower limbs (disorder) ([id number] ) Atherosclerosis of [place] artery of both lower extremities, with unspecified presence of clinical manifestation (I70.203) Active confirmed Vital Signs Blood pressure diastolic 63 mm Hg 11/25/2023 Height 5 ft 9 in in 11/25/2023 Blood pressure systolic 122 mm Hg 11/25/2023 Weight 170 lbs 11/25/2023 BMI 25.1 kg/m2 11/25/2023 Procedures Procedure Date Ordered Date Performed Result Body Sit e 64170-XXEJPFA NAIL, 6 OR MORE 11/25/2023 N/A 16863-XUGS SKIN LESIONS, OVER 4 11/25/2023 N/A Encounters Encounter Location Date Provider Diagnosis [facility] [address] [address] 11/25/2023 Eros Pederson Atherosclerosis of [place] artery of both lower extremities, with unspecified presence of clinical manifestation I70.203 ; Tinea unguium B35.1 ; Pain in right toe(s) M79.674 and Pain in left toe(s) M79.675 [facility] [address] [address] 03/02/2024 Eros Pederson Assessments Encounter Date Diagnosis (ICD Code) Assessment Notes Treatment Notes Treatment Clinical Notes Section Notes 11/25/2023 Tinea unguium (ICD-10 - B35.1) 11/25/2023 Atherosclerosis of [place] artery of both lower extremities, with unspecified presence of clinical manifestation (ICD-10 - I70.203) 11/25/2023 Pain in right toe(s) (ICD-10 - M79.674) 11/25/2023 Pain in left toe(s) (ICD-10 - M79.675) Plan Of Treatment Pending Test Test Name Order Date 56030-GPSZDNA NAIL, 6 OR MORE 10/10/2020 77179-CZDUYQN NAIL, 6 OR MORE 12/26/2020 21913-RUCAHMU NAIL, 6 OR MORE 05/15/2021 93325-YVDKUXZ NAIL, 6 OR MORE 08/14/2021 53432-SJGWDPE NAIL, 6 OR MORE 12/25/2021 76337-NTZXWBL NAIL, 6 OR MORE 03/12/2022 37733-XSIFSIV NAIL, 6 OR MORE 05/21/2022 87116-IRVAQIL NAIL, 6 OR MORE 07/30/2022 21005-KVQGULA NAIL, 6 OR MORE 10/08/2022 25905-EYQSGOH NAIL, 6 OR MORE 12/21/2022 83108-HKREYOV NAIL, 6 OR MORE 03/18/2023 09850-JWIIGDX NAIL, 6 OR MORE 05/24/2023 23560-QBSWYPW NAIL, 6 OR MORE 09/13/2023 67403-OFGRTIM NAIL, 6 OR MORE 11/25/2023 56556-ZCUT SKIN LESIONS, OVER 4 11/25/19 24 54860-LZOH SKIN LESIONS, OVER 4 09/13/19 24 44037-ZSIV SKIN LESIONS, OVER 4 05/24/19 24 27396-BRPV SKIN LESIONS, OVER 4 03/18/19 24 25711-WGOU SKIN LESIONS, OVER 4 12/22/19 23 44694-CDXO SKIN LESIONS, OVER 4 10/09/19 23 79965-FFMX SKIN LESIONS, OVER 4 07/31/19 23 26751-HFLE SKIN LESIONS, OVER 4 05/22/19 23 60618-XLQC SKIN LESIONS, OVER 4 03/12/19 23 46335-ELJB SKIN LESIONS, 2 TO 4 12/26/19 22 Insurance Providers Payer Name Payer Address Payer Phone Subscriber Number Group Number Insured Name Patient Relationship to Insured Coverage Start Date Coverage End Date [facility] 67 Medicare Preferred [address] [place] [address] [phone] [id number] Wayne Montilla Self - patient is the insured Medical (General) History Medical History History ICD Code Angina Cataracts Gall bladder problems High blood pressure Warts Measles Chicken pox covid-19 dry eyes Surgical History 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
[2024-10-19 14:43] VITALS: BP 120/58; PULSE 48; RESP 16; TEMP 36.2; O2SAT 99; BMI 25.2
== END 2024-10-19 15:17 | disposition home or self-care (01) ==
LOC: HO.HMCSH 14:24
PROVIDERS: PCP Internal Medicine; Visit Provider Physician Assistant Medical
DX: I25.10 Atherosclerotic heart disease of native coronary artery without angina pectoris (principal); K59.00 Constipation, unspecified; R19.7 Diarrhea, unspecified; N52.9 Male erectile dysfunction, unspecified; G62.9 Polyneuropathy, unspecified; D22.9 Melanocytic nevi, unspecified; R00.1 Bradycardia, unspecified

== ENCOUNTER → 2024-10-19 14:24 | Outpatient (BNVA) | payer MEDICARE, SELFPAY | PROVIDERS: PCP Internal Medicine; Visit Provider Physician Assistant Medical | DX: I25.10 Atherosclerotic heart disease of native coronary artery without angina pectoris (principal); R19.7 Diarrhea, unspecified; K59.00 Constipation, unspecified; R10.9 Unspecified abdominal pain; G62.9 Polyneuropathy, unspecified; N52.9 Male erectile dysfunction, unspecified; D22.9 Melanocytic nevi, unspecified; R00.1 Bradycardia, unspecified; Z79.82 Long term (current) use of aspirin; Z79.899 Other long term (current) drug therapy | CPT/HCPCS: 96127; 99202 ==

== ENCOUNTER 2024-11-19 12:36 | Outpatient (REF) | payer MEDICARE, SELFPAY ==
--- OUTSIDE RECORDS SUMMARY | 2023-08-05 06:00 | XMS_ITS ---
Author Organization [facility] Address [address] [place] [address] Care Team Providers Care Hot Wire Glass Tube Cutter Name Role Phone Nancy GRANDA, Bonilla Primary Care Provider Unavailab Eros Barnhart Unavailable [phone] Encounters Encounter Location Date Provider Diagnosis [address] [address] 08/05/2023 Eros Pederson Plan Of Treatment No Information Progress Notes * Wayne LAM EDOB:1935 (89 yo M)Acc No.[id number]:08/05/2023 Progress Note Patient: Wayne BARON Provider: Judy Pederson DPM :1935 A ge:88 Y S ex:Male Date:08/05/2023 Address:[address] [place], [place] [id number] Pcp:Bonilla Cruz MD Subjective: * Chief Complaints: * * Medical History: Objective: * Vitals: Assessment: Plan: * Treatment: * Images: * The named appointment provid er may or may not be the originator of this progress note, and it is not deemed complete until electronically signed by the appointment provider. Sign off status: Pending * Provider: Judy Pederson DPM Date: 08/05/2023 Generated for Printi ng/Faxing/eTransmitting on: 11/19/2024 01:46 PM EDT
--- OUTSIDE RECORDS SUMMARY | 2024-03-02 07:15 | XMS_ITS ---
Author Organization [facility] [place] Address [address] [place] [address] Care Team Providers Care Network Coordinator Name Role Phone Bonilla Cruz MD Primary Care Provider Unavailab Eros Barnhart Unavailable [phone] Medications Medication SIG (Take, Route, Frequency, Duration) [...] Negative Encounters Encounter Location Date Provider Diagnosis [facility] [place] [address] [place] [address] 03/02/2024 Eros Pederson Plan Of Treatment No Information Progress Notes * Wayne LAM EDOB:1935 (89 yo M)Acc No.[id number]:03/02/2024 Progress Note Patient: Wayne BARON Provider: Judy Pederson DPM :1935 A ge:88 Y S ex:Male Date:03/02/2024 Address:[address] [place], [place] [id number] Pcp:Bonilla Cruz MD Subjective: * Chief Complaints: [...] 0 03/02/2024 Generated for Josi shell/Anay/Taty on: 11/19/2024 01:46 PM EDT
--- OUTSIDE RECORDS SUMMARY | 2024-11-19 13:46 | XMS_ITS | Patient Health Record ---
Author [facility] [place] Address [address] [place] [address] Care Team Providers Care Workforce Management Manager Name Role Phone Bonilla Cruz MD Primary Care Provider UnavailEros Landis Unavailable [phone] Allergies Allergen (clinical drug ingredient) Drug/Non Drug [...] atherosclerosis of arteries of lower limbs (disorder) ([id number] ) Atherosclerosis of [place] artery of both lower extremities, with unspecified presence of clinical manifestation (I70.203) Active confirmed Vital Signs Blood pressure diastolic 63 mm Hg 11/25/2023 Height 5 ft 9 in in 11/25/2023 Blood pressure systolic 122 mm Hg 11/25/2023 Weight 170 lbs 11/25/2023 BMI 25.1 kg/m2 11/25/2023 Procedures Procedure Date Ordered Date Performed Result Body Sit e 68707-LEBSNJA NAIL, 6 OR MORE 11/25/2023 N/A 53731-GORQ SKIN LESIONS, OVER 4 11/25/2023 N/A Encounters Encounter Location Date Provider Diagnosis [facility] [address] [address] 11/25/2023 Eros Pederson Atherosclerosis of [place] artery of both lower extremities, with unspecified presence of clinical manifestation I70.203 ; Tinea unguium B35.1 ; Pain in right toe(s) M79.674 and Pain in left toe(s) M79.675 [facility] [address] [address] 03/02/2024 Eros Pederson Assessments Encounter Date Diagnosis (ICD Code) Assessment Notes Treatment Notes Treatment Clinical Notes Section Notes 11/25/2023 Tinea unguium (ICD-10 - B35.1) 11/25/2023 Atherosclerosis of [place] artery of both lower extremities, with unspecified presence of clinical manifestation (ICD-10 - I70.203) 11/25/2023 Pain in right toe(s) (ICD-10 - M79.674) 11/25/2023 Pain in left toe(s) (ICD-10 - M79.675) Plan Of Treatment Pending Test Test Name Order Date 93342-ILFHYAU NAIL, 6 OR MORE 10/10/2020 35123-VRFORMB NAIL, 6 OR MORE 12/26/2020 48390-GPFXQRT NAIL, 6 OR MORE 05/15/2021 28721-BKFFTCL NAIL, 6 OR MORE 08/14/2021 87130-RAVBHKP NAIL, 6 OR MORE 12/25/2021 32903-TVTMPDF NAIL, 6 OR MORE 03/12/2022 68513-USBJXNY NAIL, 6 OR MORE 05/21/2022 08960-CXSFYXH NAIL, 6 OR MORE 07/30/2022 35828-KAITJTI NAIL, 6 OR MORE 10/08/2022 24402-BFIHSVB NAIL, 6 OR MORE 12/21/2022 48675-ZMYUSZM NAIL, 6 OR MORE 03/18/2023 98171-TMONCYG NAIL, 6 OR MORE 05/24/2023 45689-EKQRIWZ NAIL, 6 OR MORE 09/13/2023 15191-ONOWOII NAIL, 6 OR MORE 11/25/2023 39360-HIJT SKIN LESIONS, OVER 4 11/25/19 24 70608-WMCW SKIN LESIONS, OVER 4 09/13/19 24 31815-BMIV SKIN LESIONS, OVER 4 05/24/19 24 29420-VWYT SKIN LESIONS, OVER 4 03/18/19 24 74585-GGSB SKIN LESIONS, OVER 4 12/22/19 23 64168-QLPE SKIN LESIONS, OVER 4 10/09/19 23 90608-KXOH SKIN LESIONS, OVER 4 07/31/19 23 02260-GNDV SKIN LESIONS, OVER 4 05/22/19 23 91333-QVNG SKIN LESIONS, OVER 4 03/12/19 23 88835-JKNS SKIN LESIONS, 2 TO 4 12/26/19 22 Insurance Providers Payer Name Payer Address Payer Phone Subscriber Number Group Number Insured Name Patient Relationship to Insured Coverage Start Date Coverage End Date [facility] 67 Medicare Preferred [address] [place] [address] [id number] Wayne Montilla Self - patient is the insured Medical (General) History Medical History History ICD Code Angina Cataracts Gall bladder problems High blood pressure Warts Measles Chicken pox covid-19 dry eyes Surgical History 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
[2024-11-19 16:10] LABS: MANUAL DIFF FLAG NO
[2024-11-19 16:27] LABS: Hematocrit 37.8 % (42.0-52.0); Hemoglobin 12.1 g/dl (14.0-18.0); Imm Gran Abs Auto 0.02 X10*3/uL (0.00-0.03); Imm Gran Pct Auto 0.3 % (0.0-0.4); Lymphocytes Absolute Auto 1.6 X10*3/uL (1.2-4.9); Mean Corpuscular HGB Conc 32.0 g/dl (31.0-36.0); Mean Corpuscular Hemoglobin 31.1 pg (27.0-33.0); Mean Corpuscular Volume 97.2 fL (80.0-98.0); NRBC Abs Auto 0.000 X10*3/uL (0.0-0.012); NRBC Pct Auto 0.0 /100WBC (0.0-0.2); Platelet Count 228 X10*3/uL (160-400); Red Blood Count 3.89 X10*6/uL (4.60-5.80); White Blood Count 6.3 X10*3/uL (4.8-10.8)
[2024-11-19 16:48] LABS: Alanine Aminotransferase 21 U/L (0-40); Albumin Level 3.9 g/dL (3.5-5.0); Alkaline Phosphatase 93 U/L (39-117); Anion Gap 9 (12-20); Aspartate Amino Transferase 28 U/L (5-37); Blood Urea Nitrogen 16 mg/dL (9-16); Calcium 8.5 mg/dL (8.4-10.2); Carbon Dioxide 31 mmol/L (22-29); Chloride 106 mmol/L (96-108); Estimated Glomerular Filt Rate > 60; Magnesium 2.1 mg/dL (1.6-2.6); Potassium 4.5 mmol/L (3.3-5.1); Sodium 141 mmol/L (135-145); Total Protein 6.2 g/dL (6.5-8.0)
[2024-11-19 16:56] LABS: PSA,Total (Free>4and<10) 0.89 ng/mL (0.00-4.00)
== END 2024-11-19 12:37 | disposition home or self-care (01) ==
LOC: HO.HMGCLDS 12:36
PROVIDERS: PCP Physician Assistant Medical; Visit Provider Physician Assistant Medical
DX: Z00.00 Encounter for general adult medical examination without abnormal findings (principal); Z12.5 Encounter for screening for malignant neoplasm of prostate; Z13.1 Encounter for screening for diabetes mellitus; Z13.29 Encounter for screening for other suspected endocrine disorder
CPT/HCPCS: 36415; 80053; 82248; 83036; 83735; 84153; 84443; 85025

== ENCOUNTER 2025-01-23 14:18 | Outpatient (AMB) | payer MEDICARE, SELFPAY ==
--- OUTSIDE RECORDS SUMMARY | 2023-08-05 05:00 | XMS_ITS ---
Author Organization [facility] Address [address] [place] [address] Care Team Providers Care Advance Agent Name Role Phone Nancy GRANDA, Bonilla Primary Care Provider Unavailab Eros Barnhart Unavailable [phone] Encounters Encounter Location Date Provider Diagnosis [address] [address] 08/05/2023 Eros Pederson Plan Of Treatment No Information Progress Notes * Wayne LAM EDOB:1935 (89 yo M)Acc No.[id number]:08/05/2023 Progress Note Patient: Wayne BARON Provider: Judy Pederson DPM :1935 A ge:88 Y S ex:Male Date:08/05/2023 Address:[address] [place], [place] [id number] Pcp:Bonilla Cruz MD Subjective: * Chief Complaints: * * Medical History: Objective: * Vitals: Assessment: Plan: * Treatment: * Images: * The named appointment provid er may or may not be the originator of this progress note, and it is not deemed complete until electronically signed by the appointment provider. Sign off status: Pending * Provider: Judy Pederson DPM Date: 0 08/05/2023 Generated for Mariellai sumaya/Faarmindag/eTransmitting on: 03/26/2024 05:08 PM EST
--- OUTSIDE RECORDS SUMMARY | 2024-03-02 06:15 | XMS_ITS ---
Author Organization [facility] [place] Address [address] [place] [address] Care Team Providers Care Poultry Scientist Name Role Phone Bonilla Cruz MD Primary Care Provider Unavailab Eros Barnhart Unavailable [phone] Medications Medication SIG (Take, Route, Frequency, Duration) Notes Start Date End Date Status Allergy Relief 10 MG 1 tablet Orally Onc e a day; Duration: 30 day(s) Active Metoprolol Succinate 25 MG 1 capsule Orally Once a day; Duration: 30 day(s) Not-Taking Aspirin EC 81 MG 1 tablet Orally Once a day; Duration: 30 day(s) Active Atorvastatin Calcium 80 MG 1 tablet Orally Once a day; Duration: 30 day(s) Active Losartan Potassium 50 MG 1 tablet Orally Once a day; Duration: 30 day(s) Active Terazosin HCl 5 MG 1 capsule at bedtime Orally Once a day; Duration: 30 day(s) Active Ciclopirox Olamine 0.77 % 1 application Externally Twice a day; Duration: 30 days Not-Takin g Isosorbide Dinitrate 60 mg Not-Taking Marijuana medical Not-Taking Primidone 50 MG 1 tablet Orally Once a day; Duration: 30 day(s) Active Metoprolol Succinate 25 MG 1 capsule Orally Once a day; Duration: 30 day(s) Active NexIUM 24HR 20 MG 1 tablet 1 hour befo re a meal Orally Once a day; Duration: 30 day(s) Active Social History Tobacco Use: Social History Observation Description Date Details (start date - stop date) Never Smoker NA - NA Tobacco use other than smoking: Question Answer Notes Are you an other tobacco user? No Tobacco Control (Standard) Question Answer Notes Tobacco use: Nonsmoker AUDIT-C (Standard) Question Answer Notes Did you have a drink containing alcohol in the p ast year? No Points 0 Interpretation Negative Encounters Encounter Location Date Provider Diagnosis [facility] [place] [address] [place] [address] 03/02/2024 Eros Pederson Plan Of Treatment No Information Progress Notes * Wayne LAM EDOB:1935 (89 yo M)Acc No.[id number]:03/02/2024 Progress Note Patient: Wayne BARON Provider: Judy Pederson DPM :1935 A ge:88 Y S ex:Male Date:03/02/2024 Address:[address] [place], [place] [id number] Pcp:Bonilla Cruz MD Subjective: * Chief Complaints: * * Medical History: * Social History: T obacco Use: T obacco use other than smoking A re you an other tobacco user? N o Tobacco Control (Standard) T obacco use: N onsmoker D rugs/Alcohol: D rugs H ave you used drugs other than those for medical reasons in the past 12 months? N o M iscellaneous: C affeine: yes, frequency: , 1-2 cups decaff per day. Children: yes, 3. Exercise: no. Marital status: . Occupation: retired- self employed. D rug/Alcohol: A MONTRELL-C (Standard) D id you have a drink containing alcohol in the past year? N o P oints 0 I nterpretation N egative * Medications: T aking Allergy Relief 10 MG Tablet 1 tablet Orally Once a day , Taking Aspirin EC 81 MG Tablet Delayed Release 1 tablet Orally Once a day , Taking Atorvastatin Calcium 80 MG Tablet 1 tablet Orally Once a day , Taking Losartan Potassium 50 MG Tablet 1 tablet Orally Once a day , Taking Metoprolol Succinate 25 MG Capsule ER 24 Hour Sprinkle 1 capsule Orally Once a day , Taking NexIUM 24HR 20 MG Tablet Delayed Release 1 tablet 1 hour before a meal Orally Once a day , Taking Primidone 50 MG Tablet 1 tablet Orally Once a day , Taking Terazosin HCl 5 MG Capsule 1 capsule at bedtime Orally Once a day , Not-Taking/PRN Ciclopirox Olamine 0.77 % Cream 1 application Externally Twice a day , Not-Taking/PRN Isosorbide Dinitrate , Notes to Pharmacist: 60 mg, Not-Taking/PRN Marijuana , Notes to Pharmacist: medical, Not-Taking/PRN Metoprolol Succinate 25 MG Capsule ER 24 Hour Sprinkle 1 capsule Orally Once a day Objective: * Vitals: Assessment: Plan: * Treatment: * Images: * The named appointment provid er may or may not be the originator of this progress note, and it is not deemed complete until electronically signed by the appointment provider. Sign off status: Pending * Provider: Judy Pederson DPM Date: 0 03/02/2024 Generated for Josi shell/Anay/Taty on: 03/26/2024 05:08 PM EST
--- NOTE | 2025-01-23 14:31 | MHC.OFFVIS ---
Intake Visit Reasons: 6 months/tremors Allergies No Known Allergies (No Known Allergies*) Allergy (Verified 01/23/25 14:34) Medication List - Last Reconciled 01/23/25 by Talia Cortez CNP aspirin 81 mg PO DAILY atorvastatin 80 mg PO DAILY 90 days cholecalciferol (vitamin D3) 125 mcg PO DAILY mecobalamin (vitamin B12) 1,000 mcg PO DAILY [id number] mcg (Men 50 Plus Multivitamin) 1 tab PO DAILY primidone 250 mg PO TID 90 days sildenafil (Viagra) 50 mg PO DAILY PRN terazosin 5 mg PO BEDTIME 90 days HPI Comments Details: 89-year-old man with benign tremor. He was doing okay. Tremor was controlled with primidone three times a day, L > R. He could tell if he missed dose as tremors increased. No functional impairment. No difficulty eating, drinking, or swallowing. He started ballroom dancing about 6 months ago which he enjoyed. No falls. [facility] Medical History (Updated 01/23/25 @ 14:34 by Talia Cortez CNP) Neuropathy Diarrhea Constipation Multiple atypical skin moles Erectile dysfunction Right sided abdominal pain CAD (coronary artery disease) Hyperlipidemia HTN (hypertension) Surgical History Hx of cardiac cath (~09/2018) Hx of colonoscopy Hx of inguinal hernia surgery History of prostate surgery Family History Father Lung cancer Mother No problems noted. Social History Housing: Condominium Alcohol intake: current Alcohol intake frequency: holidays/special occasions only Patient Tobacco Use Status: Never used Tobacco service: No Current occupational status: retired Cognitive needs: No Hearing needs: No Vision needs: Yes (reading) Review of Systems Const Denies chills, Denies daytime sleepiness, Denies difficulty sleeping, Denies fatigue, Denies fever(s), Denies frequent falls, Denies headache(s), Denies increased appetite, Denies poor appetite, Denies snoring, Denies weakness, Denies weight gain and Denies weight loss Eyes Denies loss of vision ENT Denies vertigo, Denies dizziness and Denies headache(s) Card Denies chest pain at rest, Denies chest pain with activity, Denies syncope, Denies leg edema and Denies palpitations Resp Denies snoring GI Denies constipation, Denies heartburn, Denies diarrhea and Denies nausea Denies urinary frequency, Denies urinary incontinence and Denies urinary urgency Musc Denies abnormal gait, Denies numbness and Denies tingling Skin/Breast Denies dry skin and Denies rash Neuro Denies abnormal gait, Denies vertigo, Denies dizziness, Denies syncope, Denies frequent falls, Denies headache(s), Denies lack of coordination, Denies loss of vision, Denies memory loss, Denies numbness, Denies restless legs, Denies seizure-like activity, Denies tingling, Denies paresthesias, Reports tremor(s) and Denies weakness Psych Denies anxiety, Denies depression, Denies auditory hallucinations, Denies memory loss, Denies visual hallucinations and Denies suicidal ideation Endo Denies fatigue and Denies palpitations Physical Exam Const Other: General Appearance:? normal, in no acute distress. Skin:? no rashes, no significant birthmarks. Heart:? S1, S2 normal, no murmurs. Lungs:? clear anteriorly and posteriorly. Extremities:? no edema. Psych:? alert, oriented, cognitive function intact, cooperative with exam. Neuro Other: Mental Status:?Normal attention, orientation, memory and affect.? Cranial Nerves:?Pupils are equal, round and reactive to light. External occular muscles are intact. Visual beaver are full. Face is symmetrical. Facial sensations are normal. Tongue is midline. Palate elevates symmetrically. Shoulder shrugging is normal. Hearing to bedside conversation is normal. Sensory Exam:?....? Coordination:?No ataxia,?no titubation.? Gait Exam: Within normal limits. Extrapyramidal System:?No tremor, rigidity with normal facial expressions.? Pronator Drift:?Not present.? Involuntary Movements:?Fine tremors of the outstretched hands seen. Speech:?Normal.? Results Reviewed Results Reviewed: NCV/EMG UE 02/09/23 (in office) No significant abnormality noted in this study. Assessment & Plan Assessment & Plan (1) Benign essential tremor: Code(s): G25.0 - Essential tremor Category: Medical Plan: Continue primidone 250mg 1 tablet three times a day. Follow up in 1 year or sooner as needed. Medications: Refilled primidone 250 mg PO TID 270 tabs 3RF 90 days Coding Level of Care Code Est Pt Level 4 (90188) Diagnoses Benign essential tremor G25.0
--- OUTSIDE RECORDS SUMMARY | 2025-01-23 17:08 | XMS_ITS | Patient Health Record ---
[facility] Address [address] [place] [address] Care Team Providers Care Dental Services Director Name Role Phone Bonilla Cruz MD Primary Care Provider UnavailEros Landis Unavailable [phone] Allergies Allergen (clinical drug ingredient) Drug/Non Drug [...] atherosclerosis of arteries of lower limbs (disorder) ([id number] ) Atherosclerosis of [place] artery of both lower extremities, with unspecified presence of clinical manifestation (I70.203) Active confirmed Encounters Encounter Location Date Provider Diagnosis [facility] [place] [address] [place] [address] 03/02/2024 Eros Pederson Plan Of Treatment Pending Test Test Name Order Date [id number] NAIL, 6 OR MORE 10/10/2020 [id number] NAIL, 6 OR MORE 12/26/2020 [id number] NAIL, 6 OR MORE 05/15/2021 [id number] NAIL, 6 OR MORE 08/14/2021 [id number] NAIL, 6 OR MORE 12/25/2021 [id number] NAIL, 6 OR MORE 03/12/2022 [id number] NAIL, 6 OR MORE 05/21/2022 [id number] NAIL, 6 OR MORE 07/30/2022 [id number] NAIL, 6 OR MORE 10/08/2022 [id number] NAIL, 6 OR MORE 12/21/2022 [id number] NAIL, 6 OR MORE 03/18/2023 [id number] NAIL, 6 OR MORE 05/24/2023 [id number] NAIL, 6 OR MORE 09/13/2023 [id number] NAIL, 6 OR MORE 11/25/2023 [id number] SKIN LESIONS, OVER 4 11/25/19 24 [id number] SKIN LESIONS, OVER 4 09/13/19 24 [id number] SKIN LESIONS, OVER 4 05/24/19 24 [id number] SKIN LESIONS, OVER 4 03/18/19 24 [id number] SKIN LESIONS, OVER 4 12/22/19 23 [id number] SKIN LESIONS, OVER 4 10/09/19 23 [id number]-RDMR SKIN LESIONS, OVER 4 07/31/19 23 [id number] SKIN LESIONS, OVER 4 05/22/19 23 [id number] SKIN LESIONS, OVER 4 03/12/19 23 [id number] SKIN LESIONS, 2 TO 4 12/26/19 22 Insurance Providers Payer Name Payer Address Payer Phone Subscriber Number Group Number Insured Name Patient Relationship to Insured Coverage Start Date Coverage End Date [facility] 65 Medicare Preferred [address] [place] [address] [id number] Wayne Montilla Self - patient is the insured Medical (General) History Medical History History ICD Code Angina Cataracts Gall bladder problems High blood pressure Warts Measles Chicken pox covid-19 dry eyes Surgical History 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
== END 2025-01-23 14:55 | disposition home or self-care (01) ==
LOC: HO.HSM 14:18
PROVIDERS: PCP Physician Assistant Medical; Visit Provider Registered Nurse
DX: G25.0 Essential tremor (principal)
CPT/HCPCS: 99214

== ENCOUNTER → 2025-01-23 14:18 | Outpatient (BNVA) | payer MEDICARE, SELFPAY | PROVIDERS: PCP Physician Assistant Medical; Visit Provider Registered Nurse | DX: G25.0 Essential tremor (principal); Z79.899 Other long term (current) drug therapy | CPT/HCPCS: 99212 ==